=== PATIENT | male | born 1955 | race Caucasian/White ===

== ENCOUNTER 2024-03-17 14:52 | Outpatient (CLI) | payer MEDICARE, SELFPAY ==
--- NOTE | ~2024-03-17 | XR_ITS ---
EXAMINATION: XR ankle LT 2V DATE: 03/17/2024 16:00 INDICATION: Left ankle pain TECHNIQUE: Anteroposterior and lateral views of the left ankle were obtained. COMPARISON: None. FINDINGS: Bone alignment is normal. No fracture. Mild polyarticular osteoarthritis in the mid and hindfoot slig ht more prominent mild to moderate severity at the subtalar joint. There is some increased density an terior to the ankle joint which could represent a small joint effusion. Small Achilles and plantar ca lcaneal enthesophytes with some mild enthesopathic calcification along the Achilles tendon. IMPRESSION: 1. Polyarticular osteoarthritis in the mid and hindfoot mild to moderate at the subtalar joint and ot herwise mild. 2. Achilles and plantar calcaneal enthesopathy. 3. Possible small left ankle joint effusion. Reviewed, dictated and finalized at location A. IMPRESSION: 1. Polyarticular osteoarthritis in the mid and hindfoot mild to moderate at the subtalar joint and otherwise mild. 2. Achilles and plantar calcaneal enthesopathy. 3. Possible small left ankle joint effusion.
--- NOTE | ~2024-03-17 | XR_ITS ---
EXAMINATION: XR knee LT 3V, XR knee RT 3V DATE: 03/17/2024 16:00 INDICATION: Bilateral knee pain TECHNIQUE: 1. Weight bearing anteroposterior, sunrise, and flexed lateral views of the left knee were obtained. 2. Weight bearing anteroposterior, sunrise, and flexed lateral views of the right knee were obtained COMPARISON: None. FINDINGS: Right knee: Minimal genu varum. No fracture. Chondrocalcinosis and small to moderate-sized marginal osteophytes in all 3 compartments of the knee. There is mild nonuniform joint space narrowing in the medial later al compartments. Minimal right knee joint effusion. Soft tissues are unremarkable. Left knee: Alignment is normal. No fracture. Chondrocalcinosis and small to moderate-sized marginal osteophytes in all 3 compartments of the knee. There is severe joint space narrowing in the medial compartment w ith remodeling of the articular surface at the the medial aspect of the medial tibial plateau. Small left knee joint effusion. There are couple tiny linear densities likely retained sutures which projec t over the soft tissues along the medial margin of the distal quadriceps tendon. Soft tissues are oth erwise unremarkable. IMPRESSION: 1. Chondrocalcinosis and tricompartmental osteoarthritis of both knees, mild to moderate severity at the medial and lateral compartments of the right knee, mild at the bilateral patellofemoral compartme nts and severe at the medial compartment of the right knee. Reviewed, dictated and finalized at location A. IMPRESSION: 1. Chondrocalcinosis and tricompartmental osteoarthritis of both knees, mild to moderate severity at the medial and lateral compartments of the right knee, mi ld at the bilateral patellofemoral compartments and severe at the medial compar tment of the right knee.
== END 2024-03-17 14:53 | disposition home or self-care (01) ==
DX: M77.52 Other enthesopathy of left foot and ankle (principal); M25.562 Pain in left knee; M25.561 Pain in right knee; M25.572 Pain in left ankle and joints of left foot
CPT/HCPCS: 73562; 73600